=== PATIENT | female | born 1965 | race Two or more races ===

== ENCOUNTER 2017-12-07 05:00 | Day surgery (SDC) | payer OTHER ==
[~2017-12-07 05:00] MED LIST: ATENOLOL25 MG PO; FORTAMET1000 MG PO; LANTUS SOL100 UNIT/1
== END 2017-12-07 12:30 | disposition home or self-care (01) ==
LOC: CIR.AMB 05:00 → EDBD 08:15 → CIR.AMB 08:15
DX: S42.322 Displaced transverse fracture of shaft of humerus, left arm (principal)
CPT/HCPCS: 24515; C1776